=== PATIENT | female | born 1980 | race Caucasian/White ===

== ENCOUNTER 2019-11-01 10:08 | Inpatient (IN) | payer OTHER ==
[~2019-11-01] VITALS: Ht 160 cm; Wt 64.0 kg
[~2019-11-01 10:08] MED LIST: Verotin-Gr Cap1 EACH PO
[2019-11-02 06:29] LABS: BASOPHILS ABSOLUTE AUTO 0.04 K/mm3 (0.00-0.23); BASOPHILS PERCENT AUTO 0 % (0-2); EOSINOPHILS ABSOLUTE AUTO 0.09 K/mm3 (0.00-0.68); EOSINOPHILS PERCENT AUTO 1 % (0-6); Hematocrit 36.1 % (33.0-51.0); Hemoglobin 12.4 g/dL (11.5-16.0); IMMATURE GRAN PERCENT AUTO 2 % (0-1); LYMPHOCYTES ABSOLUTE AUTO 2.59 K/mm3 (0.84-5.20); LYMPHOCYTES PERCENT AUTO 22 % (21-46); MONOCYTES ABSOLUTE AUTO 0.85 K/mm3 (0.16-1.47); MONOCYTES PERCENT AUTO 7 % (4-13); Mean Corpuscular HGB 34.1 pg (26.0-34.0); Mean Corpuscular HGB Conc 34.3 g/dL (31.5-36.5); Mean Corpuscular Volume 99 fL (80-100); Mean Platelet Volume 10.2 fL (9.1-12.4); NEUTROPHILS ABSOLUTE AUTO 7.89 K/mm3 (1.96-9.15); NEUTROPHILS PERCENT AUTO 68 % (41-73); Platelet Count 247 K/mm3 (150-400); RDW Coefficient Variation 12.6 % (11.7-14.2); RDW Standard Deviation 45.2 fL (35.1-46.3); Red Blood Cell Count 3.64 M/mm3 (3.80-5.20); White Blood Cell Count 11.66 K/mm3 (4.00-11.30)
--- NOTE | 2019-11-02 08:19 | NUR ---
11/02/19 0819 Dominique Barrera 0804 DELIVERY VIABLE FEMALE INFANT WEIGHT 5# [id number], APGARS 9/9 HEAD 13 INCHES, CHEST 12.25 INCHES. LENGTH 18.25 INCHES, UMBILICAL CORD COLLECTED SENT [facility] FOR CORD GASES, UMBILICAL CORD BLOOD COLLECTED FOR TYPE AND RH GIVEN TO Haresh HERMAN RN, PLACENTA [phone] GM
[2019-11-02 08:33] LABS: PCO2 Cord - Venous 30.8 mmHg (40-50); PO2 Cord - Venous 26.9 mmHg (28-32); pH Umbilical Cord - Venous 7.44 (7.26-7.35)
--- NOTE | 2019-11-02 10:44 | NUR ---
REPT TO Haresh HERMAN RN, PT OUT TO ROOM HOLDING NB
--- NOTE | 2019-11-02 12:21 | NUR ---
RN ROUNDED TO HELP W/ . NB HAD FED 1.5 HOURS EARLIER AND IS NOT SHOWING ANY INTEREST IN FEEDING. INSTRUCTED PT ON WIDENING LATCH, CORRECT POSITIONING AND NIPPLE SHAPE AFTER FEEDS. INSTRUCT/DEMO HAND EXPRESSION OF COLOSTRUM. INSTRUCT/REVIEWED BOOKLET AND BROCHURE ON WHAT TO EXPECT DURING THE FIRST WEEK W/ AND FEEDING PATTERN CHANGES IN NB. PT VERBALIZED UNDERSTANDING AND DENIES ANY FURTHER QUESTIONS OR CONCERNS.
[2019-11-03 05:46] LABS: BASOPHILS ABSOLUTE AUTO 0.06 K/mm3 (0.00-0.23); BASOPHILS PERCENT AUTO 0 % (0-2); EOSINOPHILS ABSOLUTE AUTO 0.14 K/mm3 (0.00-0.68); EOSINOPHILS PERCENT AUTO 1 % (0-6); Hematocrit 34.9 % (33.0-51.0); IMMATURE GRAN ABSOLUTE AUTO 0.11 K/mm3 (0.00-0.10); IMMATURE GRAN PERCENT AUTO 1 % (0-1); LYMPHOCYTES ABSOLUTE AUTO 2.98 K/mm3 (0.84-5.20); LYMPHOCYTES PERCENT AUTO 22 % (21-46); MONOCYTES ABSOLUTE AUTO 1.09 K/mm3 (0.16-1.47); MONOCYTES PERCENT AUTO 8 % (4-13); Mean Corpuscular HGB Conc 34.4 g/dL (31.5-36.5); Mean Corpuscular Volume 99 fL (80-100); NEUTROPHILS ABSOLUTE AUTO 9.51 K/mm3 (1.96-9.15); NEUTROPHILS PERCENT AUTO 69 % (41-73); Platelet Count 224 K/mm3 (150-400); RDW Coefficient Variation 12.5 % (11.7-14.2); RDW Standard Deviation 45.1 fL (35.1-46.3); Red Blood Cell Count 3.53 M/mm3 (3.80-5.20); White Blood Cell Count 13.89 K/mm3 (4.00-11.30)
--- NOTE | 2019-11-03 14:52 | NUR ---
1000: RN ROUNDED TO HELP W/ AND FIND OUT HOW NB LATCHED THROUGH THE NIGHT. NIPPLE SHIELD WAS GIVEN TO PT DURING NOC SHIFT. RN ATTEMPTED TO HELP LATCH NB W/O SHIELD, NB DID SHOW INSTEREST. NEXT HELPED TO LATCH W/ THE SHIELD, AGAIN NO ATTEMPT TO FEED. LASTLY WE PREFILLED THE NIPPLE SHIELD W/ FORMULA TO GIVE NB INSTANT GRATIFICATION AT THE BREAST TO SEE IF NB WOULD MAKE MORE EFFORT TOWARDS FEEDING. NB MADE VERY LITTLE ATTEMPTS TO FEED. RN INSTRUCTED PT TO KEEP NB SKIN TO SKIN AND WATCH FOR EARLY FEEDING QUES AND ATTEMPT TO LATCH THEN. INSTRUCTED FOB IN ORAL EXERCIES TO HELP COORDINATE SUCK. 1230: RN ROUNDED AGAIN TO SEE IF NB WOULD MAKE ATTEMPTS TO FEED. FOB STATES THAT NB IS DISPLAYING SOME EARLY FEEDING QUES AND IS ATTEMPTING TO HELP GET NB TO LATCH. NB IS MAKE MORE ATTEMPTS THIS TIME. MOM ABLE TO GET NB TO LATCH. RN PLACED FEEDING TUBE W/ SYRINGE W/ FORMULA INTO CORNER OF NB MOUTH. NB FED WELL THIS FEED. LATCHED ON TOOK 10CC FORMULA AND CONTINUED TO FEED AFTER FORMULA WAS GONE. RN INSTRUCTED PARENTS TO CONTINUE TO DO THIS W/ EVERY FEED. IF UNABLE TO GET NB TO LATCH TO BREAST, FOB INSTRUCTED TO FINGER FEED NB. INSTRUCTED PT AND SO NOT TO USE SHIELD AT THIS TIME SINCE NB HAS PROVED THAT SHE CAN LATCH AND FEED WELL. FINGER FEEDING IS MORE BENEFICIAL FOR NB TO HELP COORDINATE SUCK BETTER. PUMP GIVEN TO MOM TO PUMP FOR 10-15 MINUTES AFTER EVERY FEED. ATLEAST EVERY 2-2.5 HOURS DURING THE DAY AND CAN GO 3-4 HOURS AT NIGHT. PUMP USED TO GIVE ADDITIONAL STIMULATION TO MOM'S MILK SUPPLY. 1430: PT PUMPING AND HAS A SMALL AMOUNT IN THE FLANGE OF THE PUMP.
--- NOTE | 2019-11-04 22:02 | NUR ---
ROUNDED AT 2030, PT BRF WELL. HAVE BEEN HAVING SOME FEEDING ISSUES, BUT HAVE IMPROVED ALOT IN LAST FEW FEEDS. USING FEEDING LOG. AWARE OF CARSEAT CHALLENGE, PLAN TO DO TONIGHT AFTER A FEED. PT DOING WELL WITH PO MEDS, DISCUSSED TIMING OF PEROCOET, AND TO BE TAKEN WITH FOOD. AT SIDE, SUPPORTIVE AND HELPFUL.
--- NOTE | 2019-11-04 23:30 | NUR ---
REPORT TO CHARLIE APONTE @ [phone].
[2019-11-05] MEDS ORDERED: IBUP800 PO (11:21)
[2019-11-05] MEDS ORDERED: Percocet 5-3251 EACH PO (11:21)
--- NOTE | 2019-11-05 14:34 | NUR ---
0105 DISCHARGED TO HOME AMBULATORY WITH BABY, PAPERWORK AND BELONGINGS
== END 2019-11-05 13:30 | disposition home or self-care (01) | DRG 788 ==
LOC: BC 11-02 05:42
PROVIDERS: ADMIT Obstetrics & Gynecology
PROC: 10D00Z1 Extraction of Products of Conception, Low, Open Approach (ICD-10-PCS; principal; 2019-11-02 07:30)
DX: O32.1XX0 Maternal care for breech presentation, not applicable or unspecified (principal); O34.03 Maternal care for unspecified congenital malformation of uterus, third trimester; Q51.3 Bicornate uterus; Z3A.39 39 weeks gestation of pregnancy; Z37.0 Single live birth; Z88.0 Allergy status to penicillin
CPT/HCPCS: 36415; 82803; 85025; 86850; 86900; 86901; J0690; J1885; J2370; J2405; J2590; J2765; J3010; J7120

== ENCOUNTER 2022-01-10 05:50 | Inpatient (IN) | payer OTHER ==
[~2022-01-10] VITALS: Ht 160 cm; Wt 68.2 kg
[~2022-01-10 05:50] MED LIST changes: +IBUP800 PO; +Percocet 5-3251 EACH PO
[2022-01-10] MEDS ORDERED: IRON18 MG (06:07)
[2022-01-10] MEDS ORDERED: LEVSOD25 PO (06:07)
[2022-01-10] MEDS ORDERED: ERGO400 PO (06:07)
[2022-01-10 06:49] LABS: BASOPHILS ABSOLUTE AUTO 0.04 K/mm3 (0.00-0.23); BASOPHILS PERCENT AUTO 0 % (0-2); EOSINOPHILS ABSOLUTE AUTO 0.17 K/mm3 (0.00-0.68); EOSINOPHILS PERCENT AUTO 2 % (0-6); Hemoglobin 12.2 g/dL (11.5-16.0); IMMATURE GRAN PERCENT AUTO 1 % (0-1); LYMPHOCYTES ABSOLUTE AUTO 2.06 K/mm3 (0.84-5.20); LYMPHOCYTES PERCENT AUTO 20 % (21-46); MONOCYTES ABSOLUTE AUTO 0.67 K/mm3 (0.16-1.47); MONOCYTES PERCENT AUTO 7 % (4-13); Mean Corpuscular HGB 32.7 pg (26.0-34.0); Mean Corpuscular HGB Conc 35.9 g/dL (31.5-36.5); Mean Corpuscular Volume 91 fL (80-100); Mean Platelet Volume 10.8 fL (9.1-12.4); NEUTROPHILS ABSOLUTE AUTO 7.33 K/mm3 (1.96-9.15); NEUTROPHILS PERCENT AUTO 71 % (41-73); Platelet Count 264 K/mm3 (150-400); RDW Coefficient Variation 12.7 % (11.7-14.2); RDW Standard Deviation 42.3 fL (35.1-46.3); Red Blood Cell Count 3.73 M/mm3 (3.80-5.20); White Blood Cell Count 10.37 K/mm3 (4.00-11.30)
--- NOTE | 2022-01-10 08:08 | NUR ---
01/10/22 0808 Hyacinth Lynne VIABLE MALE BORN BREECH AT 0759. APGARS 9/9. WEIGHT 7-2 (3825) LENGTH 20". CORD GASES ON ICE AND GIVEN TO BOBBY ODONNELL AND CORD BLOOD GIVEN TO SANDRINE GUERRA. TUBAL DONE AND SEGMENTS SENT TO PATHOLOGY.
[2022-01-10 08:33] LABS: PCO2 Cord - Venous 28.9 mmHg (40-50); PO2 Cord - Venous 26.8 mmHg (28-32); pH Umbilical Cord - Venous 7.43 (7.26-7.35)
--- NOTE | 2022-01-10 15:17 | NUR ---
Assumed care from Mk Soria RN.
--- NOTE | 2022-01-10 17:25 | NUR ---
Report to Iza Oglesby RN.
[2022-01-11 05:55] LABS: BASOPHILS ABSOLUTE AUTO 0.02 K/mm3 (0.00-0.23); BASOPHILS PERCENT AUTO 0 % (0-2); EOSINOPHILS ABSOLUTE AUTO 0.15 K/mm3 (0.00-0.68); EOSINOPHILS PERCENT AUTO 1 % (0-6); Hemoglobin 11.3 g/dL (11.5-16.0); IMMATURE GRAN ABSOLUTE AUTO 0.07 K/mm3 (0.00-0.10); IMMATURE GRAN PERCENT AUTO 1 % (0-1); LYMPHOCYTES ABSOLUTE AUTO 1.98 K/mm3 (0.84-5.20); LYMPHOCYTES PERCENT AUTO 17 % (21-46); MONOCYTES ABSOLUTE AUTO 0.81 K/mm3 (0.16-1.47); MONOCYTES PERCENT AUTO 7 % (4-13); Mean Corpuscular HGB 32.1 pg (26.0-34.0); Mean Corpuscular HGB Conc 34.2 g/dL (31.5-36.5); Mean Corpuscular Volume 94 fL (80-100); Mean Platelet Volume 10.4 fL (9.1-12.4); NEUTROPHILS ABSOLUTE AUTO 8.78 K/mm3 (1.96-9.15); NEUTROPHILS PERCENT AUTO 74 % (41-73); Platelet Count 219 K/mm3 (150-400); RDW Coefficient Variation 12.9 % (11.7-14.2); RDW Standard Deviation 44.3 fL (35.1-46.3); Red Blood Cell Count 3.52 M/mm3 (3.80-5.20); White Blood Cell Count 11.81 K/mm3 (4.00-11.30)
--- NOTE | 2022-01-12 10:13 | NUR ---
DISCHARGE INSTRUCTIONS, WRITTEN AND VERBAL, GIVEN TO PT AND HANNAH. ANSWERED ALL QUESTIONS AND CONCERNS. FOLLOW UP APPOINTMENT SCHEDULED. IV DISCONTINUED. PT HAS PRESCRIPTIONS AT HOME. ALL PERSONAL BELONGINGS RETURNED. PT IS DISCHARGED HOME, DRIVEN BY HANNAH.
== END 2022-01-12 10:42 | disposition home or self-care (01) | DRG 785 ==
LOC: BC 05:50
PROVIDERS: ADMIT Obstetrics & Gynecology
PROC: 10D00Z1 Extraction of Products of Conception, Low, Open Approach (ICD-10-PCS; principal; 2022-01-10 07:30)
PROC: 0UB70ZZ Excision of Bilateral Fallopian Tubes, Open Approach (ICD-10-PCS; 2022-01-10 07:30)
DX: O32.1XX0 Maternal care for breech presentation, not applicable or unspecified (principal); O34.211 Maternal care for low transverse scar from previous cesarean delivery; O34.03 Maternal care for unspecified congenital malformation of uterus, third trimester; Z37.0 Single live birth; O09.523 Supervision of elderly multigravida, third trimester; Q51.3 Bicornate uterus; Z30.2 Encounter for sterilization; Z3A.39 39 weeks gestation of pregnancy; Z98.890 Other specified postprocedural states; Z79.899 Other long term (current) drug therapy; Z88.0 Allergy status to penicillin; Z88.7 Allergy status to serum and vaccine
CPT/HCPCS: 36415; 82803; 85025; 86850; 86900; 86901; 88302; A9270; J0690; J1885; J2370; J3010; J7120

== ENCOUNTER → 2023-08-24 | Outpatient (CLI) | payer OTHER | LOC: LAB 12:00 → LAB SHORT 12:00 | DX: Z12.4 Encounter for screening for malignant neoplasm of cervix (principal) ==